=== PATIENT | female | born 1960 | race Caucasian/White ===

== ENCOUNTER 2016-10-18 14:50 | Emergency (ER) | payer BC, OTHER ==
--- NOTE | 2016-10-18 16:02 | ED ORDER SUMMARY ---
..... Patient: YAZMIN SOLIZ OrderSheet [facility] VisitID: [id number] [address] [place] [address] 55y, F Registration Date/Time: 10/18/2016 ORDER SHEET Weight: 123.3 kg (stated) Allergies: Statins GENERAL ORDERS: MEDICATION ORDERS: Dilaudid IM 2 mg (HIGH ALERT MEDICATION, NOW) (15:29 10/18/2016 Kelin P.A.-C) (Ack 15:33 DDean R.N.) (15:39 DDean R.N.) Phenergan IM 12.5 mg (HIGH ALERT MEDICATION, NOW) (15:29 10/18/2016 Kelin Cruz.A.-C) (Ack 15:33 DDean R.N.) (15:39 DDean R.N.) IV FLUIDS: ORDER SHEET NOTES: [Electronically signed by Jesusita Morfin R.N. (16:25 10/18/2016)] [Electronically signed by Cleopatra Franklin P.A.-C (16:37 10/18/2016)] [Electronically locked/signed by Jesusita Morfin R.N. (16:25 10/18/2016)]
--- NOTE | 2016-10-18 16:02 | ED CLINICAL REPORT ---
Clinical Report - Physicians/Mid Levels [facility] [address] [place] [address] 10/18/2016 14:53 Patient: YAZMIN SOLIZ Time Seen: 15:33 Oct 18 2016. Arrived- By private vehicle. Historian- patient. HISTORY OF PRESENT ILLNESS Is still present. 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 There were preceding symptoms. She has had blurred vision, photophobia and nausea. (Global/ rubber band on headache liked pain over the last 6 days off and on, similar to her other headaches, with light and noise sensitivity, has been taking her preventative medications at home, as well as breakthrough medications for pain. Denies any fevers. Denies any recent illness. Denies any recent car accident or any trauma to the head. Improves at night and in quiet room with no lights. Has neuro at [facility] REVIEW OF SYSTEMS No fever, muscle aches, sinus pressure, ear pain or chest pain. No difficulty breathing or diarrhea. All systems otherwise negative, except as recorded above. PAST HISTORY Problems: Migraine Headache. Lupus. Diabetes Mellitus. Thyroid Disease. Additional Surgeries: Cholecystectomy. Colon Polyps. Tonsillectomy. Medications: Citalopram Hydrobromide Oral. MetFORMIN HCl Oral 850 mg, daily. Naproxen Oral 550 mg, daily. Norethindrone-Eth Estradiol Oral 5mg. Nortriptyline HCl Oral 10 mg, as needed. Ondansetron Oral 8 mg, as needed. Relpax Oral 40mg. Telmisartan Oral 80 mg, daily. Vitamin B-12 Oral, daily. Vitamin D Oral 5000 Units, daily. Levothyroxine Sodium Oral 112 mcg, daily. Atenolol Oral 100 mg, at bedtime. Betamethasone Dipropionate External (Cream 0.05 %). Elidel External. Gabapentin Oral. Glimepiride Oral. Allergies: Statins. SOCIAL HISTORY Former smoker. No alcohol use or drug use. ADDITIONAL NOTES The nursing notes have been reviewed. PHYSICAL EXAM Vital Signs: 10/18/2016 15:04 BP: 148/69. HR: 67. RR: 16. O2 saturation: 99%. Temp: 98.8 F. Pain level now: 7/10. Appearance: Alert. Eyes: Eyes normal inspection. ENT: Nose normal. Neck: Normal inspection. No meningeal signs. CVS: Normal heart rate and rhythm. Heart sounds normal. Respiratory: No respiratory distress. No respiratory distress. Breath sounds normal. Abdomen: Soft. Back: Normal inspection. No CVA tenderness. Neuro: Oriented X 3. Alert. Mood/affect normal. Cranial nerves normal (as tested). No cerebellar findings. No motor deficit. PROGRESS AND PROCEDURES Course of Care: Patient reports she infrequently gets headaches that she is unable to manage at home, however has not been able to completely resolve her headache over the last almost 7 days. She reports no fall or trauma, the headache is similar in nature her previous headaches. Neg neuro exam. Sx improved. NO fevers. 10/18/2016 16:21 BP: 151/67. HR: 74. RR: 16. O2 saturation: 100%. Pain level now: 0/10. Patient is stable. Differential Diagnosis: I considered migraine, cluster headache, ischemic stroke, subarachnoid hemorrhage, intracranial bleed, vascular malformation, bacterial meningitis, encephalitis, sinusitis, carbon monoxide exposure and trigeminal neuralgia as a possible cause of headache in this patient. This is a partial list of diagnoses considered. CLINICAL IMPRESSION Recurrent migraine headache. Diabetes. Hypertension. INSTRUCTIONS Warnings: CONTROLLED SUBSTANCE WARNINGS. Follow-up: Follow up with your doctor as needed. (Electronically signed by Cleopatra Franklin P.A.-C 10/18/2016 16:37)
--- NOTE | 2016-10-18 16:02 | ED NURSING NOTES ---
Clinical Report - Nurses [facility] [address] [place] [address] 10/18/2016 14:53 Patient: YAZMIN SOLIZ TRIAGE Triage time 15:00 Oct 18 2016. Acuity: LEVEL 3. Chief Complaint: MIGRAINE HEADACHE. Alert. KAYE COMA SCORE: Kaye Coma Scale: 15- eyes open spontaneously (4); best verbal response- oriented x 4 (5); best motor response- obeys commands (6). --15:26 Casey Sandoval R.N. 15:04 10/18/16. BP: 148/69. HR: 67. RR: 16. O2 saturation: 99% on room air. Temp: 98.8 F. Pain level now: 7/10. Additional comments: ROONEY. --15:26 Casey Sandoval R.N. Weight: 123.3 kg stated. Height/Length: 66 inches Per Patient. BMI: 43.9. --15:20 Casey Sandoval R.N. Medications Atenolol Oral 100 mg, at bedtime. Betamethasone Dipropionate External (Cream 0.05 %). Elidel External. Gabapentin Oral. Glimepiride Oral. --15:09 Casey Sandoval R.N. Levothyroxine Sodium Oral 112 mcg, daily. --15:09 Casey Sandoval R.N. Citalopram Hydrobromide Oral. MetFORMIN HCl Oral 850 mg, daily. Naproxen Oral 550 mg, daily. Norethindrone-Eth Estradiol Oral 5mg. Nortriptyline HCl Oral 10 mg, as needed. Ondansetron Oral 8 mg, as needed. Relpax Oral 40mg. Telmisartan Oral 80 mg, daily. Vitamin B-12 Oral, daily. Vitamin D Oral 5000 Units, daily. --15:12 Casey Sandoval R.N. Medication/allergy information source: the patient. --15:26 Casey Sandoval R.N. Allergies Statins. --15:17 Casey Sandoval R.N. History Arrived by private vehicle. Historian: patient. Accompanied by spouse. Primary physician (Alfreda Melendez). ( Migraine ROONEY for the last 6 days associated with nausea and photophobia). This started about 6 days ago. Patient was last known well (about 6 days ago). She has had nausea. 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 (Relpax). PAST MEDICAL HX: Immunizations: status is unknown. Last normal menstrual period- Taking Norepidrone. SOCIAL HX: Former smoker, end date 1996. No alcohol use or drug use. No recent travel. No infectious disease exposure. No known contact with a sick individual. ABUSE ASSESSMENT: No report of abuse. FALL RISK ASSESSMENT: Fall risk assessment completed. No fall risk identified. NUTRITIONAL RISK ASSESSMENT: The nutritional risk assessment revealed no deficiencies. FUNCTIONAL ASSESSMENT: Functional assessment: no impairments noted. LEARNING NEEDS ASSESSMENT: The learning needs assessment revealed no barriers. SKIN INTEGRITY ASSESSMENT: Skin integrity risk assessment completed. No skin integrity risk identified. --15:26 Casey Sandoval R.N. PROBLEMS: Thyroid Disease. Migraine Headache. Lupus. Diabetes Mellitus. --15:20 Casey Sandoval R.N. ADDITIONAL SURGERIES: Cholecystectomy. Colon Polyps. Tonsillectomy. --15:20 Casey Sandoval R.N. Interventions ID and allergy band on patient. To room. --15:26 Casey Sandoval R.N. PHYSICAL ASSESSMENT Ambulatory to room. GENERAL / NEURO / PSYCH: Alert. Oriented X 4. Appears in pain. Speech within normal limits. HEENT: No facial asymmetry noted. RESPIRATORY: Respirations not labored. CVS: Capillary refill less than 2 seconds. GI / : Abdomen soft. SKIN: Skin is warm and dry. --15:27 Casey Sandoval R.N. NURSING PROGRESS NOTES Patient gowned. Reassurance given. Lights dimmed. Patient identifiers checked. Call light placed in reach. Side rails up x 1. Bed placed in lowest position. Brakes of bed on. Patient ready for evaluation- chart flagged and PA notified. --15:27 Casey Sandoval R.N. 15:39 10/18/2016 Dilaudid (HYDROmorphone HCl PF) IM 2 mg given. Given in the left ventral gluteus. --15:39 Jesusita Morfin R.N. 15:39 10/18/2016 Phenergan (Promethazine HCl) IM 12.5 mg given. Given in the left ventral gluteus. Sedative warning given to the patient. --15:39 Jesusita Morfin R.N. 15:40 First contact with pt. Pt laying on bed in dark quiet room. states that she hasn';t been in the er for headache for "along time". --16:24 Jesusita Morfin R.N. 16:00 pt states she is "much better" at bedside. --16:25 Jesusita Morfin R.N. DISPOSITION / DISCHARGE 16:10. Condition at departure: improved and stable. No learning barriers present. Discharge instructions provided and reviewed with the patient and spouse. Reviewed medication(s) (continue home meds, follow up with PCP). Patient and spouse verbalized understanding. Written instructions provided in Colombian. The patient was discharged home and accompanied by spouse. She left the Emergency Department ambulatory and via private vehicle. Spouse driving. --16:22 Jesusita Morfin R.N. 16:21 10/18/16. BP: 151/67. HR: 74. RR: 16. O2 saturation: 100%. Temp: deferred. Pain level now: 0/10. --16:22 Jesusita Morfin R.N. Locked/Released at 10/18/2016 16:25 by Jesusita Morfin R.N.
--- NOTE | 2016-10-18 16:02 | ED CLINICAL REPORT ---
Clinical Report - Physicians/Mid Levels [facility] [address] [place] [place] [address] 10/18/2016 14:53 Patient: YAZMIN SOLIZ Time Seen: 15:33 Oct 18 2016. Arrived- By private vehicle. Historian- patient. HISTORY OF PRESENT ILLNESS Is still present. 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 There were preceding symptoms. She has had blurred vision, photophobia and nausea. (Global/ rubber band on headache liked pain over the last 6 days off and on, similar to her other headaches, with light and noise sensitivity, has been taking her preventative medications at home, as well as breakthrough medications for pain. Denies any fevers. Denies any recent illness. Denies any recent car accident or any trauma to the head. Improves at night and in quiet room with no lights. Has neuro at [facility] REVIEW OF SYSTEMS No fever, muscle aches, sinus pressure, ear pain or chest pain. No difficulty breathing or diarrhea. All systems otherwise negative, except as recorded above. PAST HISTORY Problems: Migraine Headache. Lupus. Diabetes Mellitus. Thyroid Disease. Additional Surgeries: Cholecystectomy. Colon Polyps. Tonsillectomy. Medications: Citalopram Hydrobromide Oral. MetFORMIN HCl Oral 850 mg, daily. Naproxen Oral 550 mg, daily. Norethindrone-Eth Estradiol Oral 5mg. Nortriptyline HCl Oral 10 mg, as needed. Ondansetron Oral 8 mg, as needed. Relpax Oral 40mg. Telmisartan Oral 80 mg, daily. Vitamin B-12 Oral, daily. Vitamin D Oral 5000 Units, daily. Levothyroxine Sodium Oral 112 mcg, daily. Atenolol Oral 100 mg, at bedtime. Betamethasone Dipropionate External (Cream 0.05 %). Elidel External. Gabapentin Oral. Glimepiride Oral. Allergies: Statins. SOCIAL HISTORY Former smoker. No alcohol use or drug use. ADDITIONAL NOTES The nursing notes have been reviewed. PHYSICAL EXAM Vital Signs: 10/18/2016 15:04 BP: 148/69. HR: 67. RR: 16. O2 saturation: 99%. Temp: 98.8 F. Pain level now: 7/10. Appearance: Alert. Eyes: Eyes normal inspection. ENT: Nose normal. Neck: Normal inspection. No meningeal signs. CVS: Normal heart rate and rhythm. Heart sounds normal. Respiratory: No respiratory distress. No respiratory distress. Breath sounds normal. Abdomen: Soft. Back: Normal inspection. No CVA tenderness. Neuro: Oriented X 3. Alert. Mood/affect normal. Cranial nerves normal (as tested). No cerebellar findings. No motor deficit. PROGRESS AND PROCEDURES Course of Care: Patient reports she infrequently gets headaches that she is unable to manage at home, however has not been able to completely resolve her headache over the last almost 7 days. She reports no fall or trauma, the headache is similar in nature her previous headaches. Neg neuro exam. Sx improved. NO fevers. 10/18/2016 16:21 BP: 151/67. HR: 74. RR: 16. O2 saturation: 100%. Pain level now: 0/10. Patient is stable. Differential Diagnosis: I considered migraine, cluster headache, ischemic stroke, subarachnoid hemorrhage, intracranial bleed, vascular malformation, bacterial meningitis, encephalitis, sinusitis, carbon monoxide exposure and trigeminal neuralgia as a possible cause of headache in this patient. This is a partial list of diagnoses considered. CLINICAL IMPRESSION Recurrent migraine headache. Diabetes. Hypertension. INSTRUCTIONS Warnings: CONTROLLED SUBSTANCE WARNINGS. Follow-up: Follow up with your doctor as needed. (Electronically signed by Cleopatra Franklin P.A.-C 10/18/2016 16:37)
--- NOTE | 2016-10-18 16:02 | ED ORDER SUMMARY ---
..... Patient: YAZMIN SOLIZ OrderSheet [facility] VisitID: [id number] [address] [place] [address] 55y, F Registration Date/Time: 10/18/2016 ORDER SHEET Weight: 123.3 kg (stated) Allergies: Statins GENERAL ORDERS: MEDICATION ORDERS: Dilaudid IM 2 mg (HIGH ALERT MEDICATION, NOW) (15:29 10/18/2016 Kelin P.A.-C) (Ack 15:33 DDean R.N.) (15:39 DDean R.N.) Phenergan IM 12.5 mg (HIGH ALERT MEDICATION, NOW) (15:29 10/18/2016 Kelin Cruz.A.-C) (Ack 15:33 DDean R.N.) (15:39 DDean R.N.) IV FLUIDS: ORDER SHEET NOTES: [Electronically signed by Jesusita Morfin R.N. (16:25 10/18/2016)] [Electronically signed by Cleopatra Franklin P.A.-C (16:37 10/18/2016)] [Electronically locked/signed by Jesusita Morfin R.N. (16:25 10/18/2016)]
--- NOTE | 2016-10-18 16:37 | ED MAR SUMMARY ---
..... Medication Administration Record [facility] [address] [place] [address] Patient: YAZMIN SOLIZ Visit ID: [id number] 55y, F Weight: 123.3 kg Height/Length: 66 in BMI: 43.9 ALLERGIES: Statins Given 15:39 10/18/2016 Jesusita Morfin R.N. Medication Administered: DILAUDID [IM] (HYDROMORPHONE HCL PF), Dose: 2 mg IM. Medication Ordered: Dilaudid IM 2 mg (HIGH ALERT MEDICATION, NOW). Given 15:10/18/2016 Jesusita Morfin R.N. Medication Administered: PHENERGAN [IM] (PROMETHAZINE HCL), Dose: 12.5 mg IM. Medication Ordered: Phenergan IM 12.5 mg (HIGH ALERT MEDICATION, NOW).
--- NOTE | 2016-10-18 16:37 | ED MAR SUMMARY ---
..... Medication Administration Record [facility] [address] [place] [address] Patient: YAZIMN SOLIZ Visit ID: [id number] 55y, F Weight: 123.3 kg Height/Length: 66 in BMI: 43.9 ALLERGIES: Statins Given 15:39 10/18/2016 Jesusita Morfin R.N. Medication Administered: DILAUDID [IM] (HYDROMORPHONE HCL PF), Dose: 2 mg IM. Medication Ordered: Dilaudid IM 2 mg (HIGH ALERT MEDICATION, NOW). Given 15:10/18/2016 Jesusita Morfin R.N. Medication Administered: PHENERGAN [IM] (PROMETHAZINE HCL), Dose: 12.5 mg IM. Medication Ordered: Phenergan IM 12.5 mg (HIGH ALERT MEDICATION, NOW).
--- NOTE | 2016-10-18 16:37 | ED MED RECONCILIATION SUMMARY ---
Patient: YAZMIN SOLIZ Medication Reconciliation Report [facility] VisitID: [id number] [address] [place] [address] 55y, F Registration Date/Time: 10/18/2016 Weight: 123.3 kg Height/Length: 66 in. BMI: 43.9 ALLERGIES: Statins The patient's Home Medications are listed below: THE FOLLOWING MEDICATIONS NEED TO BE RECONCILED: Atenolol Oral 100 mg, at bedtime Betamethasone Dipropionate External (0.05 %) Citalopram Hydrobromide Oral Elidel External Gabapentin Oral Glimepiride Oral Levothyroxine Sodium Oral 112 mcg, daily MetFORMIN HCl Oral 850 mg, daily Naproxen Oral 550 mg, daily Norethindrone-Eth Estradiol Oral 5mg Nortriptyline HCl Oral 10 mg Ondansetron Oral 8 mg Relpax Oral 40mg Telmisartan Oral 80 mg, daily Vitamin B-12 Oral, daily Vitamin D Oral 5000 Units, daily The source(s) of the original Home Medication information: patient The following Medications were given to the patient in the Emergency Department: Dilaudid [IM] IM 2 mg, administered: 10/18/2016 3:39:00 PM Phenergan [IM] IM 12.5 mg, administered: 10/18/2016 3:39:00 PM The following Medications were prescribed to the patient: None.
--- NOTE | 2016-10-18 16:37 | ED DISCHARGE INSTRUCTIONS ---
Patient: YAZMIN SOLIZ General Instructions [facility] VisitID: [id number] [address] [place] [address] 55y, F Registration Date/Time: 10/18/2016 Recurrent migraine headache. Diabetes. Hypertension. INSTRUCTIONS Warnings: CONTROLLED SUBSTANCE WARNINGS. Follow-up: Follow up with your doctor as needed. ADDITIONAL INFORMATION Migraine Headache Migraine headaches are related to changes in blood flow to the brain. This causes throbbing or constant pain on one or both sides of the head. The pain may last from a few hours to several days. There is usually nausea, vomiting, sensitivity to light and sound, and blurred vision. A migraine attack may be triggered by emotional stress, hormone changes during the menstrual cycle, oral contraceptives, alcohol use, certain foods containing tyramine, eye strain, weather changes, missing meals, or too little or too much sleep. Home Care For This Headache: 1) If you were given pain medicine for this headache, do not drive yourself home . Arrange for a ride, instead. When you get home, try to sleep. You should feel much better when you wake up. 2) Migraine headaches may improve with an ice pack on the forehead or at the base of the skull. Heat to the back of your neck may relieve any neck spasm. 3) Drink only clear liquids or eat a very light diet to avoid nausea/vomiting until symptoms improve. Preventing Future Headaches: 1) Pay attention to those factors that seem to trigger your headache. Try to avoid them when you can. If you have frequent headaches, it is useful to keep a diary of what you were doing, feeling or eating in the hours before each attack. Show this to your doctor to help find the cause of your headaches. a) If you feel that stress is a factor in your headaches, look at the sources of stress in your life. Find ways to release the build-up of those stresses by using regular exercise, relaxation methods (yoga, meditation), bio-feedback or simply taking time-out for yourself. For more information about this, consult your doctor or go to a local bookstore and review books and tapes on this subject. b) Tyramine is a substance present in the following foods : chocolate, yogurt, all cheeses except cottage cheese and cream cheese. smoked or pickled fish and meat (including cleary, caviar, bologna, pepperoni, salami), liver, avocados, bananas, figs, raisins, and red wine. Be aware that these foods may trigger a migraine in some persons. Try taking these foods out of your diet for 1-2 months to see if this reduces headache frequency. Treating Future Attacks: 1) At the first sign of a headache, take time out if possible. Find a quiet, dark, comfortable place to sit or lie down. Let yourself relax or sleep. 2) An ice pack on the forehead or area of greatest pain may help. If you are having muscle spasm and tightness of the neck, a heating pad and massage to this area may be helpful. 3) If you have been prescribed a medicine to stop a migraine headache, use this at the very first warning sign of the headache (aura or initial pain) for best results. Follow Up with your doctor if the headache is not better within the next 24 hours. If you have frequent headaches you should discuss a treatment plan with your primary care doctor. Ask if you can have medicine to take at home the next time you get a bad headache. Poorly controlled chronic headaches may require a referral to a neurologist (headache specialist). Get Prompt Medical Attention if any of the following occur: Your head pain gets worse, or does not improve within 24 hours Repeated vomiting (cant keep liquids down) Sinus or ear or throat pain (not already reported) Fever of 100.4 F (38 C) or higher, or as directed by your healthcare provider Stiff neck Extreme drowsiness, confusion or fainting Dizziness, vertigo (dizziness with spinning sensation) Weakness of an arm or leg or one side of the face Difficulty with speech or vision You have been given the following additional information: Headache, Migraine (Classical) (Electronically signed by Cleopatra Franklin P.A.-C 10/18/2016 16:37)
--- NOTE | 2016-10-18 16:37 | ED MED RECONCILIATION SUMMARY ---
Patient: YAZMIN SOLIZ Medication Reconciliation Report [facility] VisitID: [id number] [address] [place] [address] 55y, F Registration Date/Time: 10/18/2016 Weight: 123.3 kg Height/Length: 66 in. BMI: 43.9 ALLERGIES: Statins The patient's Home Medications are listed below: THE FOLLOWING MEDICATIONS NEED TO BE RECONCILED: Atenolol Oral 100 mg, at bedtime Betamethasone Dipropionate External (0.05 %) Citalopram Hydrobromide Oral Elidel External Gabapentin Oral Glimepiride Oral Levothyroxine Sodium Oral 112 mcg, daily MetFORMIN HCl Oral 850 mg, daily Naproxen Oral 550 mg, daily Norethindrone-Eth Estradiol Oral 5mg Nortriptyline HCl Oral 10 mg Ondansetron Oral 8 mg Relpax Oral 40mg Telmisartan Oral 80 mg, daily Vitamin B-12 Oral, daily Vitamin D Oral 5000 Units, daily The source(s) of the original Home Medication information: patient The following Medications were given to the patient in the Emergency Department: Dilaudid [IM] IM 2 mg, administered: 10/18/2016 3:39:00 PM Phenergan [IM] IM 12.5 mg, administered: 10/18/2016 3:39:00 PM The following Medications were prescribed to the patient: None.
== END 2016-10-18 16:10 | disposition home or self-care (01) ==
LOC: ED SRH 14:50
DX: G43.919 Migraine, unspecified, intractable, without status migrainosus (principal); E11.9 Type 2 diabetes mellitus without complications; I10 Essential (primary) hypertension; Z79.899 Other long term (current) drug therapy; Z87.891 Personal history of nicotine dependence; Z79.84 Long term (current) use of oral hypoglycemic drugs

== ENCOUNTER 2016-12-29 13:21 | Emergency (ER) | payer BC, OTHER ==
--- NOTE | 2016-12-29 14:43 | ED ORDER SUMMARY ---
..... Patient: YAZMIN SOLIZ OrderSheet [facility] VisitID: [id number] [place] [address] 56y, F Registration Date/Time: 12/29/2016 ORDER SHEET Weight: 117.9 kg (stated) Allergies: Statins GENERAL ORDERS: POC Glucose (14:39 12/29/2016 EKoroleva P.A.-C) (14:46 LNations ER Tech1) POC Glucose (14:46 12/29/2016 LNations ER Tech1 verbal order read back to EKoroleva P.A.-C) (Cancelled: Duplicate Order14:46 LNations ER Tech1) MEDICATION ORDERS: Dilaudid IM 2 mg (HIGH ALERT MEDICATION, NOW) (14:08 12/29/2016 EKoroleva P.A.-C) (14:21 LSullivan R.N.) Phenergan IM 25 mg (HIGH ALERT MEDICATION, NOW) (14:09 12/29/2016 EKoroleva P.A.-C) (14:21 LSullivan R.N.) IV FLUIDS: ORDER SHEET NOTES: [Electronically signed by Cleopatra FranklinAJulián-C (15:16 12/29/2016)] [Electronically signed by Trisha Beth R.N. (16:14 12/29/2016)] [Electronically locked/signed by Trisha Beth R.N. (16:14 12/29/2016)]
--- NOTE | 2016-12-29 14:43 | ED ORDER SUMMARY ---
..... Patient: YAZMIN SOLIZ OrderSheet [facility] VisitID: [id number] [place] [address] 56y, F Registration Date/Time: 12/29/2016 ORDER SHEET Weight: 117.9 kg (stated) Allergies: Statins GENERAL ORDERS: POC Glucose (14:39 12/29/2016 EKoroleva P.A.-C) (14:46 LNations ER Tech1) POC Glucose (14:46 12/29/2016 LNations ER Tech1 verbal order read back to EKoroleva P.A.-C) (Cancelled: Duplicate Order14:46 LNations ER Tech1) MEDICATION ORDERS: Dilaudid IM 2 mg (HIGH ALERT MEDICATION, NOW) (14:08 12/29/2016 EKoroleva P.A.-C) (14:21 LSullivan R.N.) Phenergan IM 25 mg (HIGH ALERT MEDICATION, NOW) (14:09 12/29/2016 EKoroleva P.A.-C) (14:21 LSullivan R.N.) IV FLUIDS: ORDER SHEET NOTES: [Electronically signed by Cleopatra FranklinAJulián-C (15:16 12/29/2016)] [Electronically signed by Trisha Beth R.N. (16:14 12/29/2016)] [Electronically locked/signed by Trisha Beth R.N. (16:14 12/29/2016)]
--- NOTE | 2016-12-29 14:43 | ED NURSING NOTES ---
Clinical Report - Nurses [facility] [address] [place] [place] [address] 12/29/2016 13:23 Patient: YAZMIN SOLIZ TRIAGE Triage time 14:01. Acuity: LEVEL 3. Chief Complaint: MIGRAINE HEADACHE. Alert. --14:04 Trisha Beth R.N. 14:00 12/29/16. BP: 126/59. HR: 72. RR: 18. O2 saturation: 99%. Temp: 98.4 F. Pain level now: 03/27. --14:04 Trisha Beth R.N. Weight: 117.9 kg stated. Height/Length: 67 inches Per Patient. BMI: 40.7. --14:03 Trisha Beth R.N. Medications Atenolol Oral 100 mg, at bedtime. Betamethasone Dipropionate External (Cream 0.05 %). Citalopram Hydrobromide Oral. Elidel External. Gabapentin Oral. Glimepiride Oral. Levothyroxine Sodium Oral 112 mcg, daily. MetFORMIN HCl Oral 850 mg, daily. Naproxen Oral 550 mg, daily. Norethindrone-Eth Estradiol Oral 5mg. Nortriptyline HCl Oral 10 mg, as needed. Ondansetron Oral 8 mg, as needed. Relpax Oral 40mg. Telmisartan Oral 80 mg, daily. Vitamin B-12 Oral, daily. Vitamin D Oral 5000 Units, daily. --14:07 Trisha Beth R.N. Allergies Statins. --14:07 Trisha Beth R.N. History Arrived by private vehicle. Historian: patient. Primary physician (Alfreda Melendez). ( Pt found in room, brought in by earth science laboratory technician). This started 13 days ago, headache has been intermittent. She has had nausea. 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 SOCIAL HX: Former smoker, end date 1992. No alcohol use or drug use. NUTRITIONAL RISK ASSESSMENT: The nutritional risk assessment revealed no deficiencies. FUNCTIONAL ASSESSMENT: Functional assessment: no impairments noted. --14:04 Trisha Beth R.N. PROBLEMS: Hypertension. Diabetes Mellitus. Lupus. Thyroid Disease. Migraine Headache. --14:03 Trisha Beth R.N. ADDITIONAL SURGERIES: Cholecystectomy. Colon Polyps. Tonsillectomy. --14:03 Trisha Beth R.N. Interventions ID band on patient. To room. --14:04 Trisha Beth R.N. PHYSICAL ASSESSMENT 14:12/29/16. GENERAL / NEURO / PSYCH: Alert. Oriented X 4. Speech within normal limits. --14:05 Trisha Beth R.N. NURSING PROGRESS NOTES 14:12/29/16. Patient identifiers checked. Call light placed in reach. Bed placed in lowest position. Patient ready for evaluation- chart flagged. --14:06 Trisha Beth R.N. 14:21 12/29/2016 Dilaudid (HYDROmorphone HCl PF) IM 2 mg given. Given in the left gluteus krys. Allergies verified, confirmed 5 rights and sedative warning given to the patient. --14:21 Trisha Beth R.N. 14:21 12/29/2016 Phenergan (Promethazine HCl) IM 25 mg given. Allergies verified, confirmed 5 rights and sedative warning given. --14:21 Trisha Beth R.N. Finger stick glucose: 105; ordered; performed by tech; result shown to the ED physician. --14:45 Deborah Strong ER Tech1. DISPOSITION / DISCHARGE Departure time: 1445. Condition at departure: improved. No learning barriers present. Discharge instructions provided and reviewed. Reviewed referral to family practice for followup (specialist). Verbalized understanding. Written instructions provided. The patient was discharged home. She left the Emergency Department ambulatory and via private vehicle. Spouse driving. --14:48 Trisha Beth R.N. 14:45 12/29/16. BP: 128/60. HR: 84. RR: 18. O2 saturation: 100%. Pain level now: 0/10. --14:48 Trisha Beth R.N. ( Accucheck done by earth science laboratory technician 105). --14:48 Trisha Beth R.N. Locked/Released at 12/29/2016 16:14 by Trisha Beth R.N.
--- NOTE | 2016-12-29 14:43 | ED CLINICAL REPORT ---
Clinical Report - Physicians/Mid Levels [facility] [address] [place] [place] [address] 12/29/2016 13:23 Patient: YAZMIN SOLIZ Time Seen: 14:05 Dec 29 2016. Arrived- By private vehicle. Historian- patient. HISTORY OF PRESENT ILLNESS Chief Complaint: HEADACHE. Is still present. 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 (Right side as well as band like headache over the last 10 days, times the headache improves, and returns, she has recently seen neurology at [facility], was approved for both arms, some her medications were changed, including increase of her gabapentin. Patient took Zofran this morning at 8 AM. Patient has had missed significant on a work for this as well. Patient denies any recent illness, neck pain, fevers. Reports headache is similar to previous.). REVIEW OF SYSTEMS No fever, sinus pressure, carbon monoxide exposure, abdominal pain or skin rash. All systems otherwise negative, except as recorded above. PAST HISTORY Problems: Hypertension. Migraine Headache. Diabetes Mellitus. Lupus. Thyroid Disease. Additional Surgeries: Cholecystectomy. Colon Polyps. Tonsillectomy. Medications: Atenolol Oral 100 mg, at bedtime. Betamethasone Dipropionate External (Cream 0.05 %). Citalopram Hydrobromide Oral. Elidel External. Gabapentin Oral. Glimepiride Oral. Levothyroxine Sodium Oral 112 mcg, daily. MetFORMIN HCl Oral 850 mg, daily. Naproxen Oral 550 mg, daily. Norethindrone-Eth Estradiol Oral 5mg. Nortriptyline HCl Oral 10 mg, as needed. Ondansetron Oral 8 mg, as needed. Relpax Oral 40mg. Telmisartan Oral 80 mg, daily. Vitamin B-12 Oral, daily. Vitamin D Oral 5000 Units, daily. Allergies: Statins. SOCIAL HISTORY Former smoker. No alcohol use or drug use. ADDITIONAL NOTES The nursing notes have been reviewed. PHYSICAL EXAM Vital Signs: 12/29/2016 14:00 BP: 126/59. HR: 72. RR: 18. O2 saturation: 99%. Temp: 98.4 F. Pain level now: 9/10. Appearance: Alert. Eyes: Pupils equal, round and reactive to light. Eyes normal inspection. ENT: Nose normal. Pharynx normal. Neck: Normal inspection. CVS: Normal heart rate and rhythm. Heart sounds normal. Respiratory: No respiratory distress. Breath sounds normal. No decreased air movement. Back: Normal inspection. No CVA tenderness. Skin: Skin warm. Normal skin color. Neuro: Oriented X 3. Alert. Mood/affect normal. Cranial nerves normal (as tested). No cerebellar findings. No motor deficit. No sensory deficit. Reflexes normal. PROGRESS AND PROCEDURES Course of Care: patient here in the ER with a headache ongoing for the last 10 days, similar nature to her previous headaches that she has had. Patient is seen neurology, next has been a peripheral pulse ox. Patient with no fevers, no meningeal signs, this time given longevity of headache and do not think patient is having intracranial hemorrhage, meningitis. Patient given medications in the ER, and otherwise stable for disposition. 12/29/2016 14:45 BP: 128/60. HR: 84. RR: 18. O2 saturation: 100%. Pain level now: 0/10. Patient is stable. Physical exam findings are improved. Symptoms better. Patient/family counseled. Disposition: Discharged. CLINICAL IMPRESSION Acute and chronic migraine headache- refractory to treatment. INSTRUCTIONS Do not work today (due to medical reasons and being in ER 12/29/16). (hopefully your future botox injections will be of benefit). Warnings: Further evaluation is necessary. Follow-up: Follow up with a specialist. (Electronically signed by Cleopatra Franklin P.A.-C 12/29/2016 15:16)
--- NOTE | 2016-12-29 14:43 | ED NURSING NOTES ---
Clinical Report - Nurses [facility] [address] [place] [address] 12/29/2016 13:23 Patient: YAZMIN SOLIZ TRIAGE Triage time 14:01. Acuity: LEVEL 3. Chief Complaint: MIGRAINE HEADACHE. Alert. --14:04 Trisha Beth R.N. 14:00 12/29/16. BP: 126/59. HR: 72. RR: 18. O2 saturation: 99%. Temp: 98.4 F. Pain level now: 03/27. --14:04 Trisha Beth R.N. Weight: 117.9 kg stated. Height/Length: 67 inches Per Patient. BMI: 40.7. --14:03 Trisha Beth R.N. Medications Atenolol Oral 100 mg, at bedtime. Betamethasone Dipropionate External (Cream 0.05 %). Citalopram Hydrobromide Oral. Elidel External. Gabapentin Oral. Glimepiride Oral. Levothyroxine Sodium Oral 112 mcg, daily. MetFORMIN HCl Oral 850 mg, daily. Naproxen Oral 550 mg, daily. Norethindrone-Eth Estradiol Oral 5mg. Nortriptyline HCl Oral 10 mg, as needed. Ondansetron Oral 8 mg, as needed. Relpax Oral 40mg. Telmisartan Oral 80 mg, daily. Vitamin B-12 Oral, daily. Vitamin D Oral 5000 Units, daily. --14:07 Trisha Beth R.N. Allergies Statins. --14:07 Trisha Beth R.N. History Arrived by private vehicle. Historian: patient. Primary physician (Alfreda Melendez). ( Pt found in room, brought in by vehicle modification technician). This started 13 days ago, headache has been intermittent. She has had nausea. 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 SOCIAL HX: Former smoker, end date 1992. No alcohol use or drug use. NUTRITIONAL RISK ASSESSMENT: The nutritional risk assessment revealed no deficiencies. FUNCTIONAL ASSESSMENT: Functional assessment: no impairments noted. --14:04 Trisha Beth R.N. PROBLEMS: Hypertension. Diabetes Mellitus. Lupus. Thyroid Disease. Migraine Headache. --14:03 Trisha Beth R.N. ADDITIONAL SURGERIES: Cholecystectomy. Colon Polyps. Tonsillectomy. --14:03 Trisha Beth R.N. Interventions ID band on patient. To room. --14:04 Trisha Beth R.N. PHYSICAL ASSESSMENT 14:12/29/16. GENERAL / NEURO / PSYCH: Alert. Oriented X 4. Speech within normal limits. --14:05 Trisha Beth R.N. NURSING PROGRESS NOTES 14:12/29/16. Patient identifiers checked. Call light placed in reach. Bed placed in lowest position. Patient ready for evaluation- chart flagged. --14:06 Trisha Beth R.N. 14:21 12/29/2016 Dilaudid (HYDROmorphone HCl PF) IM 2 mg given. Given in the left gluteus krys. Allergies verified, confirmed 5 rights and sedative warning given to the patient. --14:21 Trisha Beth R.N. 14:21 12/29/2016 Phenergan (Promethazine HCl) IM 25 mg given. Allergies verified, confirmed 5 rights and sedative warning given. --14:21 Trisha Beth R.N. Finger stick glucose: 105; ordered; performed by tech; result shown to the ED physician. --14:45 Deborah Strong ER Tech1. DISPOSITION / DISCHARGE Departure time: 1445. Condition at departure: improved. No learning barriers present. Discharge instructions provided and reviewed. Reviewed referral to family practice for followup (specialist). Verbalized understanding. Written instructions provided. The patient was discharged home. She left the Emergency Department ambulatory and via private vehicle. Spouse driving. --14:48 Trisha Beth R.N. 14:45 12/29/16. BP: 128/60. HR: 84. RR: 18. O2 saturation: 100%. Pain level now: 0/10. --14:48 Trisha Beth R.N. ( Accucheck done by vehicle modification technician 105). --14:48 Trisha Beth R.N. Locked/Released at 12/29/2016 16:14 by Trisha Beth R.N.
--- NOTE | 2016-12-29 14:43 | ED CLINICAL REPORT ---
Clinical Report - Physicians/Mid Levels [facility] [address] [place] [place] [address] 12/29/2016 13:23 Patient: YAZMIN SOLIZ Time Seen: 14:05 Dec 29 2016. Arrived- By private vehicle. Historian- patient. HISTORY OF PRESENT ILLNESS Chief Complaint: HEADACHE. Is still present. 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 (Right side as well as band like headache over the last 10 days, times the headache improves, and returns, she has recently seen neurology at [facility], was approved for both arms, some her medications were changed, including increase of her gabapentin. Patient took Zofran this morning at 8 AM. Patient has had missed significant on a work for this as well. Patient denies any recent illness, neck pain, fevers. Reports headache is similar to previous.). REVIEW OF SYSTEMS No fever, sinus pressure, carbon monoxide exposure, abdominal pain or skin rash. All systems otherwise negative, except as recorded above. PAST HISTORY Problems: Hypertension. Migraine Headache. Diabetes Mellitus. Lupus. Thyroid Disease. Additional Surgeries: Cholecystectomy. Colon Polyps. Tonsillectomy. Medications: Atenolol Oral 100 mg, at bedtime. Betamethasone Dipropionate External (Cream 0.05 %). Citalopram Hydrobromide Oral. Elidel External. Gabapentin Oral. Glimepiride Oral. Levothyroxine Sodium Oral 112 mcg, daily. MetFORMIN HCl Oral 850 mg, daily. Naproxen Oral 550 mg, daily. Norethindrone-Eth Estradiol Oral 5mg. Nortriptyline HCl Oral 10 mg, as needed. Ondansetron Oral 8 mg, as needed. Relpax Oral 40mg. Telmisartan Oral 80 mg, daily. Vitamin B-12 Oral, daily. Vitamin D Oral 5000 Units, daily. Allergies: Statins. SOCIAL HISTORY Former smoker. No alcohol use or drug use. ADDITIONAL NOTES The nursing notes have been reviewed. PHYSICAL EXAM Vital Signs: 12/29/2016 14:00 BP: 126/59. HR: 72. RR: 18. O2 saturation: 99%. Temp: 98.4 F. Pain level now: 9/10. Appearance: Alert. Eyes: Pupils equal, round and reactive to light. Eyes normal inspection. ENT: Nose normal. Pharynx normal. Neck: Normal inspection. CVS: Normal heart rate and rhythm. Heart sounds normal. Respiratory: No respiratory distress. Breath sounds normal. No decreased air movement. Back: Normal inspection. No CVA tenderness. Skin: Skin warm. Normal skin color. Neuro: Oriented X 3. Alert. Mood/affect normal. Cranial nerves normal (as tested). No cerebellar findings. No motor deficit. No sensory deficit. Reflexes normal. PROGRESS AND PROCEDURES Course of Care: patient here in the ER with a headache ongoing for the last 10 days, similar nature to her previous headaches that she has had. Patient is seen neurology, next has been a peripheral pulse ox. Patient with no fevers, no meningeal signs, this time given longevity of headache and do not think patient is having intracranial hemorrhage, meningitis. Patient given medications in the ER, and otherwise stable for disposition. 12/29/2016 14:45 BP: 128/60. HR: 84. RR: 18. O2 saturation: 100%. Pain level now: 0/10. Patient is stable. Physical exam findings are improved. Symptoms better. Patient/family counseled. Disposition: Discharged. CLINICAL IMPRESSION Acute and chronic migraine headache- refractory to treatment. INSTRUCTIONS Do not work today (due to medical reasons and being in ER 12/29/16). (hopefully your future botox injections will be of benefit). Warnings: Further evaluation is necessary. Follow-up: Follow up with a specialist. (Electronically signed by Cleopatra Franklin P.A.-C 12/29/2016 15:16)
--- NOTE | 2016-12-29 16:14 | ED DISCHARGE INSTRUCTIONS ---
Patient: YAZMIN SOLIZ General Instructions [facility] VisitID: [id number] [place] [address] 56y, F Registration Date/Time: 12/29/2016 Acute and chronic migraine headache- refractory to treatment. INSTRUCTIONS Do not work today (due to medical reasons and being in ER 12/29/16). (hopefully your future botox injections will be of benefit). Warnings: Further evaluation is necessary. Follow-up: Follow up with a specialist. ADDITIONAL INFORMATION Migraine Headache Migraine headaches are related to changes in blood flow to the brain. This causes throbbing or constant pain on one or both sides of the head. The pain may last from a few hours to several days. There is usually nausea, vomiting, sensitivity to light and sound, and blurred vision. A migraine attack may be triggered by emotional stress, hormone changes during the menstrual cycle, oral contraceptives, alcohol use, certain foods containing tyramine, eye strain, weather changes, missing meals, or too little or too much sleep. Home Care For This Headache: 1) If you were given pain medicine for this headache, do not drive yourself home . Arrange for a ride, instead. When you get home, try to sleep. You should feel much better when you wake up. 2) Migraine headaches may improve with an ice pack on the forehead or at the base of the skull. Heat to the back of your neck may relieve any neck spasm. 3) Drink only clear liquids or eat a very light diet to avoid nausea/vomiting until symptoms improve. Preventing Future Headaches: 1) Pay attention to those factors that seem to trigger your headache. Try to avoid them when you can. If you have frequent headaches, it is useful to keep a diary of what you were doing, feeling or eating in the hours before each attack. Show this to your doctor to help find the cause of your headaches. a) If you feel that stress is a factor in your headaches, look at the sources of stress in your life. Find ways to release the build-up of those stresses by using regular exercise, relaxation methods (yoga, meditation), bio-feedback or simply taking time-out for yourself. For more information about this, consult your doctor or go to a local bookstore and review books and tapes on this subject. b) Tyramine is a substance present in the following foods : chocolate, yogurt, all cheeses except cottage cheese and cream cheese. smoked or pickled fish and meat (including cleary, caviar, bologna, pepperoni, salami), liver, avocados, bananas, figs, raisins, and red wine. Be aware that these foods may trigger a migraine in some persons. Try taking these foods out of your diet for 1-2 months to see if this reduces headache frequency. Treating Future Attacks: 1) At the first sign of a headache, take time out if possible. Find a quiet, dark, comfortable place to sit or lie down. Let yourself relax or sleep. 2) An ice pack on the forehead or area of greatest pain may help. If you are having muscle spasm and tightness of the neck, a heating pad and massage to this area may be helpful. 3) If you have been prescribed a medicine to stop a migraine headache, use this at the very first warning sign of the headache (aura or initial pain) for best results. Follow Up with your doctor if the headache is not better within the next 24 hours. If you have frequent headaches you should discuss a treatment plan with your primary care doctor. Ask if you can have medicine to take at home the next time you get a bad headache. Poorly controlled chronic headaches may require a referral to a neurologist (headache specialist). Get Prompt Medical Attention if any of the following occur: Your head pain gets worse, or does not improve within 24 hours Repeated vomiting (cant keep liquids down) Sinus or ear or throat pain (not already reported) Fever of 100.4 F (38 C) or higher, or as directed by your healthcare provider Stiff neck Extreme drowsiness, confusion or fainting Dizziness, vertigo (dizziness with spinning sensation) Weakness of an arm or leg or one side of the face Difficulty with speech or vision You have been given the following additional information: Headache, Migraine (Classical) Do not work today (due to medical reasons and being in ER 12/29/16). (Electronically signed by Cleopatra Franklin P.A.-C 12/29/2016 15:16)
--- NOTE | 2016-12-29 16:14 | ED MED RECONCILIATION SUMMARY ---
Patient: YAZMIN SOLIZ Medication Reconciliation Report [facility] VisitID: [id number] [address] [place] [address] 56y, F Registration Date/Time: 12/29/2016 Weight: 117.9 kg Height/Length: 67 in. BMI: 40.7 ALLERGIES: Statins The patient's Home Medications are listed below: THE FOLLOWING MEDICATIONS NEED TO BE RECONCILED: Atenolol Oral 100 mg, at bedtime Betamethasone Dipropionate External (0.05 %) Citalopram Hydrobromide Oral Elidel External Gabapentin Oral Glimepiride Oral Levothyroxine Sodium Oral 112 mcg, daily MetFORMIN HCl Oral 850 mg, daily Naproxen Oral 550 mg, daily Norethindrone-Eth Estradiol Oral 5mg Nortriptyline HCl Oral 10 mg Ondansetron Oral 8 mg Relpax Oral 40mg Telmisartan Oral 80 mg, daily Vitamin B-12 Oral, daily Vitamin D Oral 5000 Units, daily The source(s) of the original Home Medication information: Not obtained. The following Medications were given to the patient in the Emergency Department: Dilaudid [IM] IM 2 mg, administered: 12/29/2016 2:21:00 PM Phenergan [IM] IM 25 mg, administered: 12/29/2016 2:21:00 PM The following Medications were prescribed to the patient: None.
--- NOTE | 2016-12-29 16:14 | ED MAR SUMMARY ---
..... Medication Administration [facility] [address] [address] Patient: YAZMIN SOLIZ Visit ID: [id number] 56y, F Weight: 117.9 kg Height/Length: 67 in BMI: 40.7 ALLERGIES: Statins Given 14:12/29/2016 Trisha Beth, RJuliánNJulián Medication Administered: DILAUDID [IM] (HYDROMORPHONE HCL PF), Dose: 2 mg IM. Medication Ordered: Dilaudid IM 2 mg (HIGH ALERT MEDICATION, NOW). Given 14:12/29/2016 Trisha Beth, R.N. Medication Administered: PHENERGAN [IM] (PROMETHAZINE HCL), Dose: 25 mg IM. Medication Ordered: Phenergan IM 25 mg (HIGH ALERT MEDICATION, NOW).
--- NOTE | 2016-12-29 16:14 | ED MED RECONCILIATION SUMMARY ---
Patient: YAZMIN SOLIZ Medication Reconciliation Report VisitID: [id number] [address] [place] [address] 56y, F Registration Date/Time: 12/29/2016 Weight: 117.9 kg Height/Length: 67 in. BMI: 40.7 ALLERGIES: Statins The patient's Home Medications are listed below: THE FOLLOWING MEDICATIONS NEED TO BE RECONCILED: Atenolol Oral 100 mg, at bedtime Betamethasone Dipropionate External (0.05 %) Citalopram Hydrobromide Oral Elidel External Gabapentin Oral Glimepiride Oral Levothyroxine Sodium Oral 112 mcg, daily MetFORMIN HCl Oral 850 mg, daily Naproxen Oral 550 mg, daily Norethindrone-Eth Estradiol Oral 5mg Nortriptyline HCl Oral 10 mg Ondansetron Oral 8 mg Relpax Oral 40mg Telmisartan Oral 80 mg, daily Vitamin B-12 Oral, daily Vitamin D Oral 5000 Units, daily The source(s) of the original Home Medication information: Not obtained. The following Medications were given to the patient in the Emergency Department: Dilaudid [IM] IM 2 mg, administered: 12/29/2016 2:21:00 PM Phenergan [IM] IM 25 mg, administered: 12/29/2016 2:21:00 PM The following Medications were prescribed to the patient: None.
--- NOTE | 2016-12-29 16:14 | ED MAR SUMMARY ---
..... Medication Administration Record [facility] [address] [place] [address] Patient: YAZMIN SOLIZ Visit ID: [id number] 56y, F Weight: 117.9 kg Height/Length: 67 in BMI: 40.7 ALLERGIES: Statins Given 14:12/29/2016 Trisha Beth, RJuliánNJulián Medication Administered: DILAUDID [IM] (HYDROMORPHONE HCL PF), Dose: 2 mg IM. Medication Ordered: Dilaudid IM 2 mg (HIGH ALERT MEDICATION, NOW). Given 14:12/29/2016 Trisha Beth, R.N. Medication Administered: PHENERGAN [IM] (PROMETHAZINE HCL), Dose: 25 mg IM. Medication Ordered: Phenergan IM 25 mg (HIGH ALERT MEDICATION, NOW).
== END 2016-12-29 13:23 | disposition home or self-care (01) ==
LOC: ED SRH 13:21
DX: G43.919 Migraine, unspecified, intractable, without status migrainosus (principal); I10 Essential (primary) hypertension; E11.9 Type 2 diabetes mellitus without complications; E07.9 Disorder of thyroid, unspecified; Z79.84 Long term (current) use of oral hypoglycemic drugs; Z79.1 Long term (current) use of non-steroidal anti-inflammatories (NSAID); Z79.899 Other long term (current) drug therapy; Z87.891 Personal history of nicotine dependence; Z88.8 Allergy status to other drugs, medicaments and biological substances
CPT/HCPCS: 90098

== ENCOUNTER 2017-01-24 12:20 | Emergency (ER) | payer BC, OTHER ==
--- NOTE | 2017-01-24 14:20 | ED ORDER SUMMARY ---
..... Patient: YAZMIN SOLIZ OrderSheet [facility] VisitID: [id number] [place] [address] 56y, F Registration Date/Time: 01/24/2017 ORDER SHEET Weight: 124.7 kg (stated) Allergies: Statins GENERAL ORDERS: POC Glucose (13:25 01/24/2017 EKoroleva P.A.-C) (13:41 LAbe R.N.) MEDICATION ORDERS: Phenergan IV 12.5 mg (HIGH ALERT MEDICATION, NOW) (13:25 01/24/2017 EKoroleva P.A.-C) (Ack 13:39 LAbe R.N.) (13:41 LAbe R.N.) IV FLUIDS: IV NS with Normal Saline 1 Liter: initial bolus none -, then 1000 mL/hr for X1 (NOW); Eliseo (12:52 01/24/2017 LAbe R.N. verbal order read back to Teri DAVIES) (Ack 12:53 LAbe R.N.) (12:54 LAbe R.N.) Ondansetron IV 4 mg (NOW) (12:52 01/24/2017 LAbe R.N. verbal order read back to Teri DAVIES) (Ack 12:53 LAbe R.N.) (12:54 LAbe R.N.) Dilaudid IV 1 mg (HIGH ALERT MEDICATION, NOW) (13:24 01/24/2017 EKoroleva P.A.-C) (Ack 13:30 LAbe R.N.) (13:39 LAbe R.N.) Toradol IV 30 mg (NOW) (13:24 01/24/2017 EKoroleva P.A.-C) (Ack 13:30 LAbe R.N.) (13:40 LAbe R.N.) Dilaudid IV 0.5 mg (HIGH ALERT MEDICATION, NOW) (14:17 01/24/2017 EKoroleva P.A.-C) (Ack 14:18 LAbe R.N.) (14:26 LAbe R.N.) Benadryl IV 25 mg (NOW) (14:17 01/24/2017 Kelin Brown) ([facility] 14:18 Petr R.N.) (14:27 Petr RAngelina.) ORDER SHEET NOTES: [Electronically signed by Cleopatra Franklin P.A.-C (14:49 01/24/2017)] [Electronically signed by Evy Cartwright R.N. (14:54 01/24/2017)] [Electronically locked/signed by Evy Cartwright R.N. (14:54 01/24/2017)]
--- NOTE | 2017-01-24 14:20 | ED ORDER SUMMARY ---
..... Patient: YAZMIN SOLIZ OrderSheet [facility] VisitID: [id number] [place] [address] 56y, F Registration Date/Time: 01/24/2017 ORDER SHEET Weight: 124.7 kg (stated) Allergies: Statins GENERAL ORDERS: POC Glucose (13:25 01/24/2017 EKoroleva P.A.-C) (13:41 LAbe R.N.) MEDICATION ORDERS: Phenergan IV 12.5 mg (HIGH ALERT MEDICATION, NOW) (13:25 01/24/2017 EKoroleva P.A.-C) (Ack 13:39 LAbe R.N.) (13:41 LAbe R.N.) IV FLUIDS: IV NS with Normal Saline 1 Liter: initial bolus none -, then 1000 mL/hr for X1 (NOW); Eliseo (12:52 01/24/2017 LAbe R.N. verbal order read back to Teri DAVIES) (Ack 12:53 LAbe R.N.) (12:54 LAbe R.N.) Ondansetron IV 4 mg (NOW) (12:52 01/24/2017 LAbe R.N. verbal order read back to Teri DAVIES) (Ack 12:53 LAbe R.N.) (12:54 LAbe R.N.) Dilaudid IV 1 mg (HIGH ALERT MEDICATION, NOW) (13:24 01/24/2017 EKoroleva P.A.-C) (Ack 13:30 LAbe R.N.) (13:39 LAbe R.N.) Toradol IV 30 mg (NOW) (13:24 01/24/2017 EKoroleva P.A.-C) (Ack 13:30 LAbe R.N.) (13:40 LAbe R.N.) Dilaudid IV 0.5 mg (HIGH ALERT MEDICATION, NOW) (14:17 01/24/2017 EKoroleva P.A.-C) (Ack 14:18 LAbe R.N.) (14:26 LAbe R.N.) Benadryl IV 25 mg (NOW) (14:17 01/24/2017 Kelin Brown) ([facility] 14:18 Petr R.N.) (14:27 Petr RAngelina.) ORDER SHEET NOTES: [Electronically signed by Cleopatra Franklni P.A.-C (14:49 01/24/2017)] [Electronically signed by Evy Cartwright R.N. (14:54 01/24/2017)] [Electronically locked/signed by Evy Cartwright R.N. (14:54 01/24/2017)]
--- NOTE | 2017-01-24 14:20 | ED CLINICAL REPORT ---
Clinical Report - Physicians/Mid Levels [facility] [address] [place] [place] [address] 01/24/2017 12:20 Patient: YAZMIN SOLIZ Time Seen: 13:08 Jan 24 2017. Arrived- By private vehicle. Historian- patient. HISTORY OF PRESENT ILLNESS Chief Complaint: HEADACHE. 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 The patient has had nausea and vomiting. No preceding symptoms, blurred vision, photophobia, numbness or weakness. (patient presents with a headache ongoing over the last 5 days, global in nature, headache off and on. Now like a band, throbbing, worsens with movement. Denies any neck pain. Patient denies any trauma. Reports history of similar headaches. Patient is awaiting Botox with her appointment in February. Patient is set up on an early follow-up visiting case of a sick call. Patient with nausea and vomiting, 2 last Zofran this a.m.). REVIEW OF SYSTEMS No fever, sinus pressure, ear pain or sore throat. All systems otherwise negative, except as recorded above. PAST HISTORY Problems: Hypertension. Diabetes Mellitus. Lupus. Thyroid Disease. Migraine Headache. Additional Surgeries: Cholecystectomy. Colon Polyps. Tonsillectomy. Medications: Topiramate Oral. Betamethasone Dipropionate External (Cream 0.05 %). Citalopram Hydrobromide Oral. Elidel External. Gabapentin Oral. Glimepiride Oral. Levothyroxine Sodium Oral 112 mcg, daily. MetFORMIN HCl Oral 850 mg, daily. Naproxen Oral 550 mg, daily. Norethindrone-Eth Estradiol Oral 5mg. Nortriptyline HCl Oral 10 mg, as needed. Ondansetron Oral 8 mg, as needed. Relpax Oral 40mg. Telmisartan Oral 80 mg, daily. Vitamin B-12 Oral, daily. Vitamin D Oral 5000 Units, daily. Atenolol Oral 100 mg, at bedtime. Allergies: Statins. SOCIAL HISTORY Never smoker. History of drug use: marijuana. Not an IV drug user. No alcohol use. ADDITIONAL NOTES The nursing notes have been reviewed. PHYSICAL EXAM Vital Signs: 01/24/2017 12:33 BP: 141/75. HR: 67. RR: 18. O2 saturation: 96%. Temp: 98.3 F. Appearance: Alert. Eyes: Pupils equal, round and reactive to light. ENT: Ears normal. Nose normal. No pharyngeal erythema. CVS: Normal heart rate and rhythm. Heart sounds normal. Respiratory: No respiratory distress. Abdomen: Soft. No abdominal tenderness or organomegaly. Back: Normal inspection. No CVA tenderness. Skin: Normal skin color. Neuro: Oriented X 3. Alert. Mood/affect normal. Cranial nerves normal (as tested). No cerebellar findings. No motor deficit. PROGRESS AND PROCEDURES Course of Care: patient multiple headache in the emergency department. There are no signs of meningeal. Similar symptoms to previous. Patient is with history of chronic headaches with difficulty managing of such, awaiting for Botox. No trauma. Negative neuro exam. Ongoing symptoms for almost 5-6 days. 01/24/2017 14:00 BP: 129/74. HR: 74. RR: 18. O2 saturation: 97%. Pain level now: 10. Patient is stable. Symptoms better. Patient/family counseled. Differential Diagnosis: I considered migraine, cluster headache, ischemic stroke, intracranial bleed, vascular malformation, cerebral aneurysm, vascular dissection, malignant hypertension, cerebral venous thrombosis, bacterial meningitis, sinusitis, carbon monoxide exposure, trigeminal neuralgia, subdural hematoma, concussion and muscle tension as a possible cause of headache in this patient. This is a partial list of diagnoses considered. Disposition: Discharged. Condition: good. CLINICAL IMPRESSION Headache. Well controlled diabetes. Hypertension. INSTRUCTIONS Do not work today. (please go home and rest DO NOT DRIVE). Warnings: Further evaluation is necessary. CONTROLLED SUBSTANCE WARNINGS. GENERAL WARNINGS: Return or contact your physician immediately if your condition worsens or changes unexpectedly, if not improving as expected, or if other problems arise. (Electronically signed by Cleopatra Franklin P.A.-C 01/24/2017 14:49)
--- NOTE | 2017-01-24 14:20 | ED CLINICAL REPORT ---
Clinical Report - Physicians/Mid Levels [facility] [address] [place] [address] 01/24/2017 12:20 Patient: YAZMIN SOLIZ Time Seen: 13:08 Jan 24 2017. Arrived- By private vehicle. Historian- patient. HISTORY OF PRESENT ILLNESS Chief Complaint: HEADACHE. 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 The patient has had nausea and vomiting. No preceding symptoms, blurred vision, photophobia, numbness or weakness. (patient presents with a headache ongoing over the last 5 days, global in nature, headache off and on. Now like a band, throbbing, worsens with movement. Denies any neck pain. Patient denies any trauma. Reports history of similar headaches. Patient is awaiting Botox with her appointment in February. Patient is set up on an early follow-up visiting case of a sick call. Patient with nausea and vomiting, 2 last Zofran this a.m.). REVIEW OF SYSTEMS No fever, sinus pressure, ear pain or sore throat. All systems otherwise negative, except as recorded above. PAST HISTORY Problems: Hypertension. Diabetes Mellitus. Lupus. Thyroid Disease. Migraine Headache. Additional Surgeries: Cholecystectomy. Colon Polyps. Tonsillectomy. Medications: Topiramate Oral. Betamethasone Dipropionate External (Cream 0.05 %). Citalopram Hydrobromide Oral. Elidel External. Gabapentin Oral. Glimepiride Oral. Levothyroxine Sodium Oral 112 mcg, daily. MetFORMIN HCl Oral 850 mg, daily. Naproxen Oral 550 mg, daily. Norethindrone-Eth Estradiol Oral 5mg. Nortriptyline HCl Oral 10 mg, as needed. Ondansetron Oral 8 mg, as needed. Relpax Oral 40mg. Telmisartan Oral 80 mg, daily. Vitamin B-12 Oral, daily. Vitamin D Oral 5000 Units, daily. Atenolol Oral 100 mg, at bedtime. Allergies: Statins. SOCIAL HISTORY Never smoker. History of drug use: marijuana. Not an IV drug user. No alcohol use. ADDITIONAL NOTES The nursing notes have been reviewed. PHYSICAL EXAM Vital Signs: 01/24/2017 12:33 BP: 141/75. HR: 67. RR: 18. O2 saturation: 96%. Temp: 98.3 F. Appearance: Alert. Eyes: Pupils equal, round and reactive to light. ENT: Ears normal. Nose normal. No pharyngeal erythema. CVS: Normal heart rate and rhythm. Heart sounds normal. Respiratory: No respiratory distress. Abdomen: Soft. No abdominal tenderness or organomegaly. Back: Normal inspection. No CVA tenderness. Skin: Normal skin color. Neuro: Oriented X 3. Alert. Mood/affect normal. Cranial nerves normal (as tested). No cerebellar findings. No motor deficit. PROGRESS AND PROCEDURES Course of Care: patient multiple headache in the emergency department. There are no signs of meningeal. Similar symptoms to previous. Patient is with history of chronic headaches with difficulty managing of such, awaiting for Botox. No trauma. Negative neuro exam. Ongoing symptoms for almost 5-6 days. 01/24/2017 14:00 BP: 129/74. HR: 74. RR: 18. O2 saturation: 97%. Pain level now: 10. Patient is stable. Symptoms better. Patient/family counseled. Differential Diagnosis: I considered migraine, cluster headache, ischemic stroke, intracranial bleed, vascular malformation, cerebral aneurysm, vascular dissection, malignant hypertension, cerebral venous thrombosis, bacterial meningitis, sinusitis, carbon monoxide exposure, trigeminal neuralgia, subdural hematoma, concussion and muscle tension as a possible cause of headache in this patient. This is a partial list of diagnoses considered. Disposition: Discharged. Condition: good. CLINICAL IMPRESSION Headache. Well controlled diabetes. Hypertension. INSTRUCTIONS Do not work today. (please go home and rest DO NOT DRIVE). Warnings: Further evaluation is necessary. CONTROLLED SUBSTANCE WARNINGS. GENERAL WARNINGS: Return or contact your physician immediately if your condition worsens or changes unexpectedly, if not improving as expected, or if other problems arise. (Electronically signed by Cleopatra Franklin P.A.-C 01/24/2017 14:49)
--- NOTE | 2017-01-24 14:20 | ED NURSING NOTES ---
Clinical Report - Nurses [facility] [address] [place] [address] 01/24/2017 12:20 Patient: YAZMIN SOLIZ TRIAGE Triage time 12:33. Acuity: LEVEL 4. Chief Complaint: MIGRAINE HEADACHE and FACIAL PAIN. Alert. SEPSIS SCREEN: Sepsis Screen. Negative (no infection suspected/documented). KAYE COMA SCORE: Kaye Coma Scale: 15- eyes open spontaneously (4); best verbal response- oriented x 4 (5); best motor response- obeys commands (6). --12:38 Evy Cartwright R.N. 12:33 01/24/17. BP: 141/75. HR: 67. RR: 18. O2 saturation: 96%. Temp: 98.3 F. Pain level now 03/27. --12:38 Evy Cartwright R.N. Weight: 124.7 kg stated. Height/Length: 67 inches Per Patient. BMI: 43.1. --12:36 Evy Cartwright R.N. Medications Atenolol Oral 100 mg, at bedtime. --12:35 Evy Cartwright R.N. Betamethasone Dipropionate External (Cream 0.05 %). Citalopram Hydrobromide Oral. Elidel External. Gabapentin Oral. Glimepiride Oral. Levothyroxine Sodium Oral 112 mcg, daily. MetFORMIN HCl Oral 850 mg, daily. Naproxen Oral 550 mg, daily. Norethindrone-Eth Estradiol Oral 5mg. Nortriptyline HCl Oral 10 mg, as needed. Ondansetron Oral 8 mg, as needed. Relpax Oral 40mg. Telmisartan Oral 80 mg, daily. Vitamin B-12 Oral, daily. Vitamin D Oral 5000 Units, daily. --12:35 Evy Cartwright R.N. Topiramate Oral. --12:35 Evy Cartwright R.N. Medication/allergy information source: the patient. --12:38 Evy Cartwright R.N. Allergies Statins. --12:35 Evy Cartwright R.N. History Arrived by private vehicle. Historian: patient. Accompanied by family. Primary physician (Feli Melendez). This started since Tuesday. She has had nausea. PAST MEDICAL HX: Immunizations: up-to-date. SOCIAL HX: Never smoker. History of drug use: marijuana. No alcohol use. No recent travel. No infectious disease exposure. No known contact with a sick individual. ABUSE ASSESSMENT: No report of abuse. SELF HARM ASSESSMENT: A self harm assessment was performed. The patient answered "no" to the question "Do you have thoughts of harming or killing yourself?" and "Are you here because you tried to hurt yourself?". FALL RISK ASSESSMENT: Fall risk assessment completed. No fall risk identified. NUTRITIONAL RISK ASSESSMENT: The nutritional risk assessment revealed no deficiencies. FUNCTIONAL ASSESSMENT: Functional assessment: no impairments noted. LEARNING NEEDS ASSESSMENT: The learning needs assessment revealed no barriers. SKIN INTEGRITY ASSESSMENT: Skin integrity risk assessment completed. No skin integrity risk identified. --12:38 Evy Cartwright R.N. PROBLEMS: Hypertension. Diabetes Mellitus. Lupus. Thyroid Disease. Migraine Headache. --12:35 Evy Cartwright R.N. ADDITIONAL SURGERIES: Cholecystectomy. Colon Polyps. Tonsillectomy. --12:35 Evy Cartwright R.N. Interventions ID band on patient. To treatment room. --12:38 Evy Cartwright R.N. PHYSICAL ASSESSMENT Ambulatory to room. GENERAL / NEURO / PSYCH: Alert. Oriented X 4. Appears in pain. Speech within normal limits. RESPIRATORY: Respirations not labored. SKIN: Skin is warm and dry. --12:39 Evy Cartwright R.N. HEENT: Photophobia present. --12:39 Evy Cartwright R.N. NURSING PROGRESS NOTES Patient gowned. Head of bed elevated. Reassurance given. Lights dimmed. Two patient identifiers checked. Call light placed in reach. Side rails up x 2. Bed placed in lowest position. Brakes of bed on. Patient ready for evaluation- chart flagged. ED physician notified. --12:39 Evy Cartwright R.N. 12:54 01/24/2017 Site #1 started via IV in the right hand with an 20g angiocath, with aseptic technique and good blood return; one attempt. Blood drawn: rainbow set. Labeled in the presence of the patient and held. Saline lock flushed with 5 mL saline. --12:54 Evy Cartwright R.N. 12:54 01/24/2017 Started bag #1 1000 mL IV Fluids IV NS (Saline); at 999 mL/hr over 1 hour(s) via site #1. Allergies verified and confirmed 5 rights. IV patency established. IV site checked: no pain, redness, or swelling. IV flushed thoroughly pre- and post-medication administration. --12:54 Evy Cartwright R.N. 12:54 01/24/2017 Ondansetron (Ondansetron HCl) IVP 4 mg given. via site #1. Allergies verified and confirmed 5 rights. IV patency established. IV site checked: no pain, redness, or swelling. IV flushed thoroughly pre- and post-medication administration. IVP given by RN. --12:54 Evy Cartwright R.N. 13:39 01/24/2017 Dilaudid (HYDROmorphone HCl PF) IVP 1 mg given. via site #1. Allergies verified, confirmed 5 rights and sedative warning given. IV patency established. IV site checked: no pain, redness, or swelling. IV flushed thoroughly pre- and post-medication administration. IVP given by RN. --13:39 Evy Cartwright R.N. 13:39 01/24/2017 IV Fluids IV NS Discontinued: bag #1 infused upon arrival. Total amount infused: 1000 mL. IV patency established. IV site checked: no pain, redness, or swelling. IV flushed thoroughly. --13:40 Evy Cartwright R.N. 13:40 01/24/2017 Toradol IVP 30 mg given. via site #1. Allergies verified and confirmed 5 rights. IV patency established. IV site checked: no pain, redness, or swelling. IV flushed thoroughly pre- and post-medication administration. IVP given by RN. --13:40 Evy Cartwright R.N. 13:41 01/24/2017 PHENERGAN (Promethazine HCl) IVP 12.5 mg given diluted in NS 10mL via site #1. Allergies verified and confirmed 5 rights. IV patency established. IV site checked: no pain, redness, or swelling. IV flushed thoroughly pre- and post-medication administration. IVP given by RN. --13:41 Evy Cartwright R.N. Finger stick glucose: 163. --13:44 Evy Cartwright R.N. 13:44 01/24/17. BP: 130/64. HR: 67. RR: 18. O2 saturation: 99%. Pain level now 01/24. --13:45 Evy Cartwright R.N. 14:00 01/24/17. BP: 129/74. HR: 74. RR: 18. O2 saturation: 97%. Pain level now: 11/24. --14:26 Evy Cartwright R.N. 14:21 01/24/2017 Dilaudid (HYDROmorphone HCl PF) IVP 0.5 mg given. via site #1. Allergies verified, confirmed 5 rights and sedative warning given to the patient. IV patency established. IV site checked: no pain, redness, or swelling. IV flushed thoroughly pre- and post-medication administration. --14:26 Evy Cartwright R.N. 14:25 01/24/2017 Benadryl (DiphenhydrAMINE HCl) IVP 25 mg given. via site #1. Allergies verified, confirmed 5 rights and sedative warning given. IV patency established. IV site checked: no pain, redness, or swelling. IV flushed thoroughly pre- and post-medication administration. IVP given by RN. --14:27 Evy Cartwright R.N. DISPOSITION / DISCHARGE 14:43 01/24/2017 Site #1 removed upon discharge. Catheter intact. Pressure dressing applied. --14:53 Evy Cartwright R.N. 14:50. Departure time: 1450. Condition at departure: improved and stable. No learning barriers present. Discharge instructions provided and reviewed with the patient. Patient verbalized understanding. Written instructions provided in [place]. The patient was discharged home and accompanied by spouse. She left the Emergency Department ambulatory and via private vehicle. Spouse driving. --14:54 Evy Cartwright R.N. 14:46 01/24/17. BP: 125/80. HR: 61. RR: 18. O2 saturation: 98%. Temp: 98.1 F. Pain level now: 0/10. --14:54 Evy Cartwright R.N. Locked/Released at 01/24/2017 14:54 by Evy Cartwright R.N.
--- NOTE | 2017-01-24 14:54 | ED MAR SUMMARY ---
..... Medication Administration Record [facility] [address] [place] [address] Patient: YAZMIN SOLIZ Visit ID: [id number] 56y, F Weight: 124.7 kg Height/Length: 67 in BMI: 43.1 ALLERGIES: Statins Start 12:54 01/24/2017 Evy Cartwright R.N., Stop 13:39 01/24/2017 Evy Cartwright R.N. Medication Administered: IV NS (SALINE), Dose: IV Fluids over 1 hour(s), Rate: 999 mL/hr, Dispensed: 1000 mL bag, Site: #1 right hand. Medication Ordered: IV NS with Normal Saline 1 Liter: initial bolus none -, then 1000 mL/hr for X1 (NOW); Eliseo. Given 12:54 01/24/2017 Evy Cartwright R.N. Medication Administered: ONDANSETRON [IVP] (ONDANSETRON HCL), Dose: 4 mg IVP, Site: #1 right hand. Medication Ordered: Ondansetron IV 4 mg (NOW). Given 13:39 01/24/2017 Evy Cartwright R.N. Medication Administered: DILAUDID [IVP] (HYDROMORPHONE HCL PF), Dose: 1 mg IVP, Site: #1 right hand. Medication Ordered: Dilaudid IV 1 mg (HIGH ALERT MEDICATION, NOW). Given 13:40 01/24/2017 Evy Cartwright R.N. Medication Administered: TORADOL [IVP], Dose: 30 mg IVP, Site: #1 right hand. Medication Ordered: Toradol IV 30 mg (NOW). Given 13:41 01/24/2017 Evy Cartwright R.N. Medication Administered: PHENERGAN [IVP] (PROMETHAZINE HCL), Dose: 12.5 mg IVP, In: NS 10 mL, Site: #1 right hand. Medication Ordered: Phenergan IV 12.5 mg (HIGH ALERT MEDICATION, NOW). Given 14:21 01/24/2017 Evy Cartwright R.N. Medication Administered: DILAUDID [IVP] (HYDROMORPHONE HCL PF), Dose: 0.5 mg IVP, Site: #1 right hand. Medication Ordered: Dilaudid IV 0.5 mg (HIGH ALERT MEDICATION, NOW). Given 14:25 01/24/2017 Evy Cartwright R.N. Medication Administered: BENADRYL [IVP] (DIPHENHYDRAMINE HCL), Dose: 25 mg IVP, Site: #1 right hand. Medication Ordered: Benadryl IV 25 mg (NOW).
--- NOTE | 2017-01-24 14:54 | ED MAR SUMMARY ---
..... Medication Administration Record [facility] [address] [place] [address] Patient: YAZMIN SOLIZ Visit ID: [id number] 56y, F Weight: 124.7 kg Height/Length: 67 in BMI: 43.1 ALLERGIES: Statins Start 12:54 01/24/2017 Evy Cartwright R.N., Stop 13:39 01/24/2017 Evy Cartwright R.N. Medication Administered: IV NS (SALINE), Dose: IV Fluids over 1 hour(s), Rate: 999 mL/hr, Dispensed: 1000 mL bag, Site: #1 right hand. Medication Ordered: IV NS with Normal Saline 1 Liter: initial bolus none -, then 1000 mL/hr for X1 (NOW); Eliseo. Given 12:54 01/24/2017 Evy Cartwright R.N. Medication Administered: ONDANSETRON [IVP] (ONDANSETRON HCL), Dose: 4 mg IVP, Site: #1 right hand. Medication Ordered: Ondansetron IV 4 mg (NOW). Given 13:39 01/24/2017 Evy Cartwright R.N. Medication Administered: DILAUDID [IVP] (HYDROMORPHONE HCL PF), Dose: 1 mg IVP, Site: #1 right hand. Medication Ordered: Dilaudid IV 1 mg (HIGH ALERT MEDICATION, NOW). Given 13:40 01/24/2017 Evy Cartwright R.N. Medication Administered: TORADOL [IVP], Dose: 30 mg IVP, Site: #1 right hand. Medication Ordered: Toradol IV 30 mg (NOW). Given 13:41 01/24/2017 Evy Cartwright R.N. Medication Administered: PHENERGAN [IVP] (PROMETHAZINE HCL), Dose: 12.5 mg IVP, In: NS 10 mL, Site: #1 right hand. Medication Ordered: Phenergan IV 12.5 mg (HIGH ALERT MEDICATION, NOW). Given 14:21 01/24/2017 Evy Cartwright R.N. Medication Administered: DILAUDID [IVP] (HYDROMORPHONE HCL PF), Dose: 0.5 mg IVP, Site: #1 right hand. Medication Ordered: Dilaudid IV 0.5 mg (HIGH ALERT MEDICATION, NOW). Given 14:25 01/24/2017 Evy Cartwright R.N. Medication Administered: BENADRYL [IVP] (DIPHENHYDRAMINE HCL), Dose: 25 mg IVP, Site: #1 right hand. Medication Ordered: Benadryl IV 25 mg (NOW).
--- NOTE | 2017-01-24 14:54 | ED DISCHARGE INSTRUCTIONS ---
Patient: YAZMIN SOLIZ General Instructions [facility] VisitID: [id number] [place] [address] 56y, F Registration Date/Time: 01/24/2017 Headache. Well controlled diabetes. Hypertension. INSTRUCTIONS Do not work today. (please go home and rest DO NOT DRIVE). Warnings: Further evaluation is necessary. CONTROLLED SUBSTANCE WARNINGS. GENERAL WARNINGS: Return or contact your physician immediately if your condition worsens or changes unexpectedly, if not improving as expected, or if other problems arise. ADDITIONAL INFORMATION Headache [Unspecified] The cause of your headache today is not clear, but it does not appear to be the sign of any serious illness. Under stress, some people tense the muscles of their shoulder, neck and scalp without knowing it. If this condition lasts long enough, a TENSION HEADACHE can occur. A MIGRAINE HEADACHE is caused by changes in blood flow to the brain. A migraine attack may be triggered by emotional stress, hormone changes during the menstrual cycle, oral contraceptives, alcohol use, certain foods containing tyramine, eye strain, weather changes, missing meals, lack of sleep or oversleeping. Other causes of headache include a viral illness with high fever, head injury with concussion, sinus, ear or throat infection, dental pain and TMJ (jaw joint) pain. More serious but less common causes of headache include stroke, brain hemorrhage, brain tumor, meningitis and encephalitis. Home Care: If you were given pain medicine for this headache, do not drive yourself home. Arrange for a ride, instead. When you get home, try to sleep. You should feel much better when you wake up. Apply heat to the back of your neck to relieve neck muscle spasm. Migraine headaches may respond best to an ice pack on the forehead or at the base of the skull. If you are having nausea or vomiting, follow a light diet until your headache is relieved. If you have a migraine type headache, use sunglasses when in the daylight or around bright indoor lighting until symptoms improve. Bright glaring light can worsen this kind of headache. Follow Up with your doctor if the headache is not better within the next 24 hours. If you have frequent headaches you should discuss a treatment plan with your primary care doctor. By being aware of the earliest signs of headache, and starting treatment right away, you may be able to stop the pain yourself. Get Prompt Medical Attention if any of the following occur: Worsening of your head pain or no improvement within 24 hours Repeated vomiting (unable to keep liquids down) Fever of 100.4F (38C) or higher, or as directed by your healthcare provider Stiff neck Extreme drowsiness, confusion or fainting Dizziness, vertigo (dizziness with spinning sensation) Weakness of an arm or leg or one side of the face Difficulty with speech or vision You have been given the following additional information: Headache, Unspecified Do not work today. (Electronically signed by Cleopatra Franklin P.A.-C 01/24/2017 14:49)
--- NOTE | 2017-01-24 14:54 | ED MED RECONCILIATION SUMMARY ---
Patient: YAZMIN OSLIZ Medication Reconciliation Report [facility] VisitID: [id number] [place] [address] 56y, F Registration Date/Time: 01/24/2017 Weight: 124.7 kg Height/Length: 67 in. BMI: 43.1 ALLERGIES: Statins The patient's Home Medications are listed below: THE FOLLOWING MEDICATIONS NEED TO BE RECONCILED: Atenolol Oral 100 mg, at bedtime Betamethasone Dipropionate External (0.05 %) Citalopram Hydrobromide Oral Elidel External Gabapentin Oral Glimepiride Oral Levothyroxine Sodium Oral 112 mcg, daily MetFORMIN HCl Oral 850 mg, daily Naproxen Oral 550 mg, daily Norethindrone-Eth Estradiol Oral 5mg Nortriptyline HCl Oral 10 mg Ondansetron Oral 8 mg Relpax Oral 40mg Telmisartan Oral 80 mg, daily Topiramate Oral Vitamin B-12 Oral, daily Vitamin D Oral 5000 Units, daily The source(s) of the original Home Medication information: patient The following Medications were given to the patient in the Emergency Department: IV NS IV Fluids bolus 0, then 999 mL/hr, administered: 01/24/2017 12:54:00 PM Ondansetron [IVP] IVP 4 mg, administered: 01/24/2017 12:54:00 PM Dilaudid [IVP] IVP 1 mg, administered: 01/24/2017 1:39:00 PM Toradol [IVP] IVP 30 mg, administered: 01/24/2017 1:40:00 PM PHENERGAN [IVP] IVP 12.5 mg diluted in NS 10 mL, administered: 01/24/2017 1:41:00 PM Dilaudid [IVP] IVP 0.5 mg, administered: 01/24/2017 2:21:00 PM Benadryl [IVP] IVP 25 mg, administered: 01/24/2017 2:25:00 PM The following Medications were prescribed to the patient: None.
--- NOTE | 2017-01-24 14:54 | ED MED RECONCILIATION SUMMARY ---
Patient: YAZMIN SOLIZ Medication Reconciliation Report [facility] VisitID: [id number] [place] [address] 56y, F Registration Date/Time: 01/24/2017 Weight: 124.7 kg Height/Length: 67 in. BMI: 43.1 ALLERGIES: Statins The patient's Home Medications are listed below: THE FOLLOWING MEDICATIONS NEED TO BE RECONCILED: Atenolol Oral 100 mg, at bedtime Betamethasone Dipropionate External (0.05 %) Citalopram Hydrobromide Oral Elidel External Gabapentin Oral Glimepiride Oral Levothyroxine Sodium Oral 112 mcg, daily MetFORMIN HCl Oral 850 mg, daily Naproxen Oral 550 mg, daily Norethindrone-Eth Estradiol Oral 5mg Nortriptyline HCl Oral 10 mg Ondansetron Oral 8 mg Relpax Oral 40mg Telmisartan Oral 80 mg, daily Topiramate Oral Vitamin B-12 Oral, daily Vitamin D Oral 5000 Units, daily The source(s) of the original Home Medication information: patient The following Medications were given to the patient in the Emergency Department: IV NS IV Fluids bolus 0, then 999 mL/hr, administered: 01/24/2017 12:54:00 PM Ondansetron [IVP] IVP 4 mg, administered: 01/24/2017 12:54:00 PM Dilaudid [IVP] IVP 1 mg, administered: 01/24/2017 1:39:00 PM Toradol [IVP] IVP 30 mg, administered: 01/24/2017 1:40:00 PM PHENERGAN [IVP] IVP 12.5 mg diluted in NS 10 mL, administered: 01/24/2017 1:41:00 PM Dilaudid [IVP] IVP 0.5 mg, administered: 01/24/2017 2:21:00 PM Benadryl [IVP] IVP 25 mg, administered: 01/24/2017 2:25:00 PM The following Medications were prescribed to the patient: None.
== END 2017-01-24 14:50 | disposition home or self-care (01) ==
LOC: ED SRH 12:20
DX: R51 Headache (principal); I10 Essential (primary) hypertension; E11.9 Type 2 diabetes mellitus without complications; Z79.899 Other long term (current) drug therapy; Z79.84 Long term (current) use of oral hypoglycemic drugs; F12.10 Cannabis abuse, uncomplicated
CPT/HCPCS: 90098